=== PATIENT | female | born 1975 | race Caucasian/White ===

== ENCOUNTER → 2017-01-18 | Outpatient (CLI) | payer BC | LOC: MAMO 11:24 | DX: Z12.31 Encounter for screening mammogram for malignant neoplasm of breast (principal); S96.919A Strain of unspecified muscle and tendon at ankle and foot level, unspecified foot, initial encounter | CPT/HCPCS: 73600; G0202 ==

== ENCOUNTER → 2020-09-25 | Outpatient (CLI) | payer BC, OTHER | LOC: MAMO 07-08 08:00 | DX: Z12.31 Encounter for screening mammogram for malignant neoplasm of breast (principal) | CPT/HCPCS: 77063; 77067 ==

== ENCOUNTER → 2022-01-25 | Outpatient (CLI) | payer BC | LOC: MAMO 14:28 | DX: Z12.31 Encounter for screening mammogram for malignant neoplasm of breast (principal) | CPT/HCPCS: 77063; 77067 ==

== ENCOUNTER → 2022-01-26 | Outpatient (CLI) | payer BC | LOC: KOH-I 15:25 | DX: M06.9 Rheumatoid arthritis, unspecified (principal); M17.9 Osteoarthritis of knee, unspecified | CPT/HCPCS: 73562 ==

== ENCOUNTER → 2022-02-25 | Day surgery (SDC) | payer BC ==
[~2022-02-25] MED LIST: AMITRIPTYLINE H10 MG PO; ARTHRITIS PAIN150 GM TP; BUPROPION XL150 MG PO; BYSTOLIC5 MG PO; ESOMEPRAZOLE MA40 MG PO; ETODOLAC500 MG PO; HYDROCHLOROTHIA25 MG PO; METHYLPHENIDATE10 M6 PO; ORENCIA125 MG/1 M SQ; VENLAFAXINE HC150 MG PO; VENLAFAXINE HCL75 MG PO
== END | disposition home or self-care (01) ==
LOC: OR 06:53
DX: Z12.11 Encounter for screening for malignant neoplasm of colon (principal); I10 Essential (primary) hypertension; K21.9 Gastro-esophageal reflux disease without esophagitis; M06.9 Rheumatoid arthritis, unspecified; E66.9 Obesity, unspecified; Z68.37 Body mass index [BMI] 37.0-37.9, adult
CPT/HCPCS: 84703; J2704